=== PATIENT | male | born 1985 | race Caucasian/White ===

== ENCOUNTER 2023-10-31 08:22 | Emergency (ER) | payer MEDICAID ==
--- NOTE | 2023-10-31 08:34 | ED ---
General Adult HPI - General Chief complaint: Recheck/Abnormal Lab/Rx Stated complaint: Bleeding in eye Time Seen by Provider: 10/31/23 08:22 Source: patient, EMS, RN notes reviewed, old records reviewed Mode of arrival: EMS Limitations: no limitations - History of Present Illness Initial comments: This is a 38-year-old male who is a diabetic and also addicted to opiates. Patient is at a rehab center for the last 9 days. Patient states over the last 3 days he has had some what he believes to be blood spots. Patient states he is a diabetic and has had a diabetic retinopathy in the past and this is exactly what has happened in the past. Patient states she is supposed to be getting quarterly injections in his eye but because of his substance abuse he missed his last appointment. Patient has no eye pain patient denies any decrease in vision patient denies headache patient denies any redness or itching patient has no symptoms besides some occasional spots which he states in the past always been associated with his diabetic retinopathy. - Related Data Allergies Allergy/AdvReac Type Severity Reaction Status Date / Time No Known Allergies Allergy Verified 10/31/23 08:29 Review of Systems ROS Statement: Those systems with pertinent positive or pertinent negative responses have been documented in the HPI. ROS Other: All systems not noted in ROS Statement are negative. Past Medical History Past Medical History: Diabetes Mellitus, Hypertension History of Any Multi-Drug Resistant Organisms: None Reported Past Surgical History: Hernia Repair Past Psychological History: PTSD Smoking Status: Current every day smoker Past Alcohol Use History: None Reported Past Drug Use History: Cocaine, Heroin, IV Drug Use General Exam - General Exam Comments Initial Comments: GENERAL Patient is well-developed and well-nourished. Patient is in mild distress. EYES Patient's pupils are equal and round. Extraocular motion is intact. I did use an ophthalmoscope and look into the patient's eye and I did not see any overt signs of any bleeding. Patient has no visual field loss at all. SKIN Unremarkable NEURO The patient is alert and oriented alert and oriented x 3 PYSCH Patient has normal interpersonal interactions. MUSCULOSKELETAL Patient has all 4 extremities with full range of motion Limitations: no limitations Course Vital Signs 10/31/23 08:24 Temperature 97.4 F L Pulse Rate 84 Respiratory 18 Rate Blood Pressure 116/83 O2 Sat by Pulse 97 Oximetry Medical Decision Making - Medical Decision Making Was pt. sent in by a medical professional or institution (ROSALINO Webber, QUALITY ASSURANCE SUPERVISOR TRIM, urgent care, hospital, or senior care...) When possible be specific @ -Patient was sent in by rehabilitation center Did you speak to anyone other than the patient for history (EMS, parent, family, police, friend...)? What history was obtained from this source @ -No Did you review nursing and triage notes (agree or disagree)? Why? @ -I reviewed and agree with nursing and triage notes Were old charts reviewed (outside hosp., previous admission, EMS record, old EKG, old radiological studies, urgent care reports/EKG's, senior care records)? Report findings @ -No old charts were reviewed Differential Diagnosis (chest pain, altered mental status, abdominal pain women, abdominal pain men, vaginal bleeding, weakness, fever, dyspnea, syncope, headache, dizziness, GI bleed, back pain, seizure, CVA, palpatations, mental health, musculoskeletal)? @ -Not applicable EKG interpreted by me (3pts min.). @ -As above X-rays interpreted by me (1pt min.). @ -None done CT interpreted by me (1pt min.). @ -None done U/S interpreted by me (1pt. min.). @ -None done What testing was considered but not performed or refused? (CT, X-rays, U/S, labs)? Why? @ -None What meds were considered but not given or refused? Why? @ -None Did you discuss the management of the patient with other professionals (professionals i.e. ROSALINO Webber, QUALITY ASSURANCE SUPERVISOR TRIM, lab, RT, psych nurse, social services aide, accessories repairer, teacher, air force senior officer, insurance case manager)? Give summary @ -No Was smoking cessation discussed for >3mins.? @ -No Was critical care preformed (if so, how long)? @ -No Were there social determinants of health that impacted care today? How? (Homelessness, low income, unemployed, alcoholism, drug addiction, transportation, low edu. Level, literacy, decrease access to med. care, correction, rehab)? @ -No Was there de-escalation of care discussed even if they declined (Discuss DNR or withdrawal of care, Hospice)? DNR status @ -No What co-morbidities impacted this encounter? (DM, HTN, Smoking, COPD, CAD, Cancer, CVA, ARF, Chemo, Hep., AIDS, mental health diagnosis, sleep apnea, m orbid obesity)? @ -None Was patient admitted / discharged? Hospital course, mention meds given and route, prescriptions, significant lab abnormalities, going to OR and other pertinent info. @ -Patient states he is diabetic retinopathy he states this has happened multiple times in the past. Patient states he supposed to get injections from his jet blade polisher. Patient states he missed his last injection but he will follow-up. Patient denies any visual disturbance patient denies any redness in the eye patient denies any pain patient states she just has noticed some floaters. Patient does not want to go to another facility to see an jet blade polisher because we have no jet blade polisher on-call. Patient's visual acuity is 20/20 in the right eye and 20/25 in the left eye. Patient's symptoms of some floaters are in the right eye. Again I did offer the patient transfer and he did not want to be transferred. Patient states he will follow-up outpatient Undiagnosed new problem with uncertain prognosis? @ -No Drug Therapy requiring intensive monitoring for toxicity (Heparin, Nitro, Insulin, Cardizem)? @ -No Were any procedures done? @ -No Diagnosis/symptom? @ -Diabetic retinopathy Acute, or Chronic, or Acute on Chronic? @ -Acute on chronic Uncomplicated (without systemic symptoms) or Complicated (systemic symptoms)? @ -Uncomplicated Side effects of treatment? @ -No Exacerbation, Progression, or Severe Exacerbation? @ -No Poses a threat to life or bodily function? How? (Chest pain, USA, [place], pneumonia, PE, COPD, DKA, ARF, appy, cholecystitis, CVA, Diverticulitis, Homicidal, Suicida l, threat to staff... and all critical care pts) @ -No Disposition Clinical Impression: Diabetic retinopathy Disposition: HOME SELF-CARE Condition: Good Additional Instructions: Patient should follow-up with an jet blade polisher SHONNA. Patient should return to the emergency department if any symptoms worsen. Is patient prescribed a controlled substance at d/c from ED?: No Referrals: None,Stated [Primary Care Provider] - 1-2 days Time of Disposition: 08:52
[2023-10-31 08:52] VITALS: BP 116/83; RESP 18; TEMP 97.4
[2023-10-31 09:21] VITALS: PULSE 71
== END 2023-10-31 09:22 | disposition home or self-care (01) ==
LOC: EC 08:22
DX: E11.319 Type 2 diabetes mellitus with unspecified diabetic retinopathy without macular edema (principal); I10 Essential (primary) hypertension; F17.200 Nicotine dependence, unspecified, uncomplicated
CPT/HCPCS: 99284

== ENCOUNTER 2023-11-11 08:21 | Emergency (ER) | payer BC, MEDICAID ==
[2023-11-11] MEDS: PROPARACAINE 0.5% OPHTH DROPS 15 ML BTL RIGHT EYE STA (08:33)
[2023-11-11] MEDS: FLUORESCEIN STRIPS 1 MG STRIP RIGHT EYE ONE (08:46)
[2023-11-11 08:55] VITALS: RESP 18; TEMP 99.1
--- NOTE | 2023-11-11 09:46 | ED ---
ENT HPI - General Chief complaint: ENT Stated complaint: Flu like symptoms Time Seen by Provider: 11/11/23 08:24 Source: patient, RN notes reviewed Mode of arrival: ambulatory Limitations: no limitations - History of Present Illness Initial comments: 38-year-old male presents emergency department chief complaint of cough and cold-like symptoms, right eye pain. Patient states that he has been sick for last few days he had negative COVID-19 test at [facility]. Patient has been evaluated for his right eye pain secondary to his diabetic retinopathy. Patient has not had his recent injection he states pain is worsened recently he denies any trauma he states that his eye is tearing profusely when he opens it up. He states light-sensitive. - Related Data Allergies Allergy/AdvReac Type Severity Reaction Status Date / Time No Known Allergies Allergy Verified 11/11/23 08:27 Review of Systems ROS Statement: Those systems with pertinent positive or pertinent negative responses have been documented in the HPI. ROS Other: All systems not noted in ROS Statement are negative. Past Medical History Past Medical History: Diabetes Mellitus, Hypertension History of Any Multi-Drug Resistant Organisms: None Reported Past Surgical History: Hernia Repair Past Psychological History: PTSD Smoking Status: Current every day smoker Past Alcohol Use History: None Reported Past Drug Use History: Cocaine, Heroin, IV Drug Use General Exam Limitations: no limitations General appearance: alert, in no apparent distress Head exam: Present: atraumatic, normocephalic, normal inspection Eye exam: Present: PERRL, EOMI, conjunctival injection (Minimal right), other (No fluorescein uptake noted on exam). Absent: normal appearance, scleral ic terus, periorbital swelling Expanded Eyelids: Normal Inspection: Bilateral Pupils: Reactive: Right (Sluggish) Sclera/Conjunctival: Injection: Right Anterior chamber: Normal Inspection: Bilateral Visual acuity (R) = 20/: 200 Visual acuity (L) = 20/: 20 IOP (R) in mmH IOP (L) in mmH IOP measured with: Tonopen ENT exam: Present: normal exam, normal oropharynx, mucous membranes moist Course Vital Signs 11/11/23 08:23 Temperature 99.1 F Pulse Rate 104 H Respiratory 18 Rate Blood Pressure 151/97 O2 Sat by Pulse 97 Oximetry Medical Decision Making - Medical Decision Making Was pt. sent in by a medical professional or institution (Dr., PA, WHIZZER, urgent care, hospital, or shelter...) When possible be specific @ -[facility] Did you speak to anyone other than the patient for history (EMS, parent, family, police, friend...)? What history was obtained from this source @ -No Did you review nursing and triage notes (agree or disagree)? Why? @ -I reviewed and agree with nursing and triage notes Were old charts reviewed (outside hosp., previous admission, EMS record, old EKG, old radiological studies, urgent care reports/EKG's, shelter records)? Report findings @ -No old charts were reviewed Differential Diagnosis (chest pain, altered mental status, abdominal pain women, abdominal pain men, vaginal bleeding, weakness, fever, dyspnea, syncope, headache, dizziness, GI bleed, back pain, seizure, CVA, palpatations, mental health, musculoskeletal)? @ -[Corneal abrasion, corneal laceration, diabetic retinopathy, glaucoma, RSV, influenza, COVID-19 EKG interpreted by me (3pts min.). @ -None X-rays interpreted by me (1pt min.). @ -[None done CT interpreted by me (1pt min.). @ -None done U/S interpreted by me (1pt. min.). @ -None done What testing was considered but not performed or refused? (CT, X-rays, U/S, labs)? Why? @ -None What meds were considered but not given or refused? Why? @ -None Did you discuss the management of the patient with other professionals (professionals i.e. , ROSALINO, WHIZZER, lab, RT, psych nurse, certified social workers in health care, tire repair mechanic, teacher, senior administrative services officer, patient case manager)? Give summary @ -[Dr. Matthews ophthalmology regarding patient's right eye complaint. This is an ongoing chronic issue has worsened. Patient has no obvious changes on exam for possible corneal abrasion or laceration there is concerned that he is developing early stages of glaucoma secondary to his diabetic retinopathy. He was advised to start on timolol and Pred acetate drops today he is being released from [facility] and will follow-up with his votator machine operator tomorrow. Patient understands Was smoking cessation discussed for >3mins.? @ -No Was critical care preformed (if so, how long)? @ -No Were there social determinants of health that impacted care today? How? (Homelessness, low income, unemployed, alcoholism, drug addiction, transportation, low edu. Level, literacy, decrease access to med. care, nursing home, rehab)? @ -No Was there de-escalation of care discussed even if they declined (Discuss DNR or withdrawal of care, Hospice)? DNR status @ -No What co-morbidities impacted this encounter? (DM, HTN, Smoking, COPD, CAD, Cancer, CVA, ARF, Chemo, Hep., AIDS, mental health diagnosis, sleep apnea, mor bid obesity)? @ -Diabetes Was patient admitted / discharged? Hospital course, mention meds given and route, prescriptions, significant lab abnormalities, going to OR and other pertinent info. @ -[Discharge patient is RSV positive. Patient does have diabetic retinopathy concerning for developing early glaucoma patient was started on drops has an appointment to follow-up with his votator machine operator. Undiagnosed new problem with uncertain prognosis? @ -No Drug Therapy requiring intensive monitoring for toxicity (Heparin, Nitro, Insulin, Cardizem)? @ -No Were any procedures done? @ -No Diagnosis/symptom? @ -Diet attic retinopathy, RSV Acute, or Chronic, or Acute on Chronic? @ -Acute Uncomplicated (without systemic symptoms) or Complicated (systemic symptoms)? @ -[Uncomplicated Side effects of treatment? @ -No Exacerbation, Progression, or Severe Exacerbation? @ -No Poses a threat to life or bodily function? How? (Chest pain, [place], [place], pneumonia, PE, COPD, DKA, ARF, appy, cholecystitis, CVA, Diverticulitis, Homicidal, Suicidal, threat to staff... and all critical care pts) @ -No - Lab Data Lab Results 11/11/23 Range/Units 08:29 Influenza Type A (PCR) Not Detected (Not Detectd) Influenza Type B (PCR) Not Detected (Not Detectd) RSV (PCR) Detected A (Not Detectd) SARS-CoV-2 (PCR) Not Detected (Not Detectd) Disposition Clinical Impression: Diabetic retinopathy, RSV infection Disposition: HOME SELF-CARE Condition: Stable Instructions (If sedation given, give patient instructions): Respiratory Syncytial Virus (ED) Additional Instructions: Use timolol drops 1 drop twice daily. Use Pred acetate drops 4 times daily. Contact your votator machine operator tomorrow for follow-up in the next 24 to 48 hours. Please return to the Emergency Department if symptoms worsen or any other concerns. Is patient prescribed a controlled substance at d/c from ED?: No Referrals: None,Stated [Primary Care Provider] - 1-2 days Time of Disposition: 09:46
[2023-11-11] MEDS: prednisoLONE ACETATE 1% OPHTH DROPS 5 ML BTL RIGHT EYE ONE (10:25)
[2023-11-11] MEDS: TIMOLOL 0.5% OPHTH DROPS 5 ML BTL RIGHT EYE ONE (10:25)
[2023-11-11 11:05] VITALS: BP 132/78; PULSE 80
== END 2023-11-11 10:47 | disposition home or self-care (01) ==
LOC: EC 08:21
DX: E11.319 Type 2 diabetes mellitus with unspecified diabetic retinopathy without macular edema (principal); B97.4 Respiratory syncytial virus as the cause of diseases classified elsewhere; I10 Essential (primary) hypertension; F17.200 Nicotine dependence, unspecified, uncomplicated; Z20.822 Contact with and (suspected) exposure to COVID-19
CPT/HCPCS: 87636; 99284